=== PATIENT | female | born 1970 | race Caucasian/White ===

== ENCOUNTER 2017-10-03 16:47 | Outpatient (CLI) | payer OTHER | END 2017-10-03 16:58 | disposition home or self-care (01) | LOC: LAB 16:47 | DX: N30.01 Acute cystitis with hematuria (principal); C53.9 Malignant neoplasm of cervix uteri, unspecified; R82.79 Other abnormal findings on microbiological examination of urine ==

== ENCOUNTER 2018-07-24 18:59 | Outpatient (CLI) | payer OTHER | END 2018-07-24 23:00 | disposition home or self-care (01) | LOC: LAB 18:59 | DX: N30.00 Acute cystitis without hematuria (principal) ==

== ENCOUNTER 2019-10-01 10:20 | Outpatient (CLI) | payer OTHER | END 2019-10-01 10:28 | disposition home or self-care (01) | LOC: NUCLEAR 10:20 | DX: I82.403 Acute embolism and thrombosis of unspecified deep veins of lower extremity, bilateral (principal) ==

== ENCOUNTER 2019-10-13 07:47 | Outpatient (CLI) | payer OTHER | END 2019-10-13 07:48 | disposition home or self-care (01) | LOC: TOM 07:47 | DX: N20.0 Calculus of kidney (principal); N31.1 Reflex neuropathic bladder, not elsewhere classified ==